=== PATIENT | female | born 1995 | race African-American/Black ===

== ENCOUNTER 2025-10-19 20:37 | Emergency (ER) | payer OTHER, SELFPAY ==
--- OUTSIDE RECORDS SUMMARY | 2025-10-19 20:52 | XMS_ITS | Encounter Summary ---
Author Organization [facility] Address [address] [place] [address] Phone Care Team Providers Care Cell Repairer Name Role Phone Anmol Merrill MD Primary Care Provider Reason for Visit * Reason Onset Date Comments Ear infection 12/31/2019 Encounter Details Date Type Department Care Team (Late st Contact Info) Description 12/31/[address] [facility] Primary Care at [facility] [address] [facility] [place] [address] Anmol Merrill MD [address] [place] [phone] Ear infection Social History Tobacco Use Types Packs/Day Years Used Date Smoking Tobacco: Never Smokeless Tobacco: Never Alcohol Use Standard Drinks/Week Comments Yes 0 (1 standard drink = 0.6 oz pur e alcohol) every once in while Comments No Sex and Gender Information Value Date Recorded Sex Assigned at Not on file Legal Sex Female 9:56 AM PST Gender Identity Female 07/21/2023 8:40 AM PDT Sexual Orientation Straight 05/17/2019 1: 08 PM PDT documented as of this encounter Miscellaneous Notes * Telephone Encounter - Marie Mcelroy RN - 12/31/2019 7:47 PM PDT Pt calling to report presumed ear infection. Report that she feels like left ear is underwater. Denies fever. Denies pain but feels some discomfort. Hasn't noticed any drainage but while cleaning ear piercing did notice some dried yellow drainage around piercing. Has been on amoxicillin BID since 1 yrs old prophylactically. Recommended that pt continue symptom management at home. Can try ear wax removal OTC. May be from fluid build up in ears after flu, advised this may take time to resolve. Reviewed reasons to call back including developing fever, drainage or pain from ear, or overall worsening condition. Pt verbalizes understanding and agrees with plan. * Telephone Encounter - Leti Kyle - 12/31/2019 7:18 PM PDT Symptom Description of symptom: underwater feeling, deep itch, pt thinks its draining at night When did symptom start? 1 week, after recovering from flu Missile Technician action taken: Caller request return call from nurse to discuss symptoms Caller approved clinic to leave a detailed voice message? yes documented in this encounter Plan of Treatment Not on file documented as of this encounter Visit Diagnoses Not on filedocumented in this encounter Care Teams Cell Repairer Relationship Specialty Start Date End Date Anmol Merrill MD [address] [place] [address] PCP - General Family Medicine 08/02/14 documented as of this encounter
[2025-10-19 21:02] VITALS: BP 128/71; RESP 18; TEMP 36.6
--- NOTE | 2025-10-20 00:48 | ED.BACK ---
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 No fevers or chills. No painful or frequent urination. Denies recent cough chest pain shortness of breath. Last menstrual period on time normal. Does not believe herself to be . Related Data Previous Rx's ?Medication ?Instructions ?Recorded cefdinir 300 mg capsule 300 mg PO BID 10 days #20 caps 10/20/25 tamsulosin 0.4 mg capsule 0.4 mg PO DAILY #14 caps 10/20/25 Allergies Allergy/AdvReac Type Severity Reaction Status Date / Time No Known Drug Allergies Allergy Verified 10/19/25 20:57 Exam Narrative Exam Narrative: GENERAL: Well-developed patient, in mild distress. HEAD: Atraumatic. Normocephalic. EYES: Pupils equal round and reactive. Extraocular motions intact. No scleral icterus. No injection or drainage. ENT: Nose without bleeding, purulent drainage. Throat without erythema, tonsillar hypertrophy or exudate. Airway patent. NECK: Trachea midline. Non tender CARDIOVASCULAR: Regular rate and rhythm without murmurs, gallops, or rubs. RESPIRATORY: Clear to auscultation. Breath sounds equal bilaterally. No wheezes, rales, or rhonchi. GASTROINTESTINAL: Abdomen soft, non-tender, nondistended. 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 BACK: Nontender without deformity or crepitance. No flank tenderness. NEURO: AOx3. Motor functions grossly nonfocal. SKIN: No rash or erythema of visible areas Initial Vital Signs Initial Vital Signs: Vital Signs Temperature 97.9 F 10/19/25 21:02 Respiratory Rate 18 10/19/25 21:02 Blood Pressure 128/71 10/19/25 21:02 Course Orders Ordered: ED Orders 10/19/25 23:52 Complete Blood Count AUTO DIFF Stat Comprehensive Metabolic Panel Stat HCG Quantitative /Beta subunit Stat Lipase Stat 10/20/25 00:58 CT abdomen pelvis wo con Stat 10/20/25 03:15 Ictotest Urine Stat Urinalysis and Microscopic Stat Discontinued Medications Hydrocodone Bitart/Acetaminophen (Hydrocodone/Acet 5/325 Prepack) 1 bottle MISC DIRECTED ONE Stop: 10/20/25 02:03 Last Admin: 10/20/25 03:54 Dose: 1 bottle Documented By: Sodium Chloride (Normal Saline 0.9%) 1,000 mls @ 1,000 mls/hr IV BOLUS ONE Stop: 10/20/25 03:00 Last Infusion: 10/20/25 03:21 Dose: Infused Documented By: Admin: 10/20/25 02:03 Dose: 1,000 mls/hr Documented By: RENETTA Ketorolac Tromethamine (Ketorolac 30 Mg/Ml Vial) 15 mg IV NOW ONE Stop: 10/20/25 00:58 Last Admin: 10/20/25 01:02 Dose: 15 mg Documented By: RENETTA Ondansetron HCl (Ondansetron 4 Mg Odt Prepack) 1 bottle MISC DIRECTED ONE Stop: 10/20/25 02:03 Last Admin: 10/20/25 03:54 Dose: 1 bottle Documented By: Tamsulosin HCl (Tamsulosin 0.4 Mg Capsule) 0.4 mg PO NOW ONE Stop: 10/20/25 02:03 Last Admin: 10/20/25 03:55 Dose: 0.4 mg Documented By: Vital Signs Vital signs: Vital Signs - 8 hr 10/19/25 21:02 Temperature 97.9 F Respiratory Rate 18 Blood Pressure 128/71 MDM - Back Pain/Injury Lab Data Attestation: I reviewed the patient's lab results. Lab results narrative: White blood cell count 17277, hemoglobin 13.6, platelets adequate. Glucose 119. Normal renal function, serum CO2, electrolytes. Liver functions normal. Serum hCG negative. Urinalysis not convincing for infection. 10/20/25 00:49 10/20/25 00:49 Labs: Lab Results 10/20/25 10/20/25 Range/Units 00:49 03:15 WBC 14.4 H (4.5-11.0) X10^3/uL RBC 4.53 (4.0-5.2) X10^6/uL Hgb 13.6 (12.0-16.0) g/dL Hct 40.1 (36-46) % MCV 88.5 (80-100) fL MCH 30.0 (26-34) PG MCHC 33.9 (30-36) % RDW 14.5 (11.6-14.8) % Plt Count 300 (150-400) X10^3/uL Neut % (Auto) 84.1 H (50-75) % Lymph % (Auto) 9.2 L (25-40) % [place] % (Auto) 6.4 (3-14) % Eos % (Auto) 0.0 L (2-4) % Baso % (Auto) 0.3 (0-2) % Neut # (Auto) 64816 H (3791-4203) /uL Lymph # (Auto) 1300 (4810-3172) /uL [place] # (Auto) 900 (0-900) /uL Eos # (Auto) 0 (0-450) /uL Baso # (Auto) 0 (0-100) /uL Sodium 140 (137-145) mmol/L Potassium 3.7 (3.4-5.1) mmol/L Chloride 105 (98-107) mmol/L Carbon Dioxide 25 (22-32) mmol/L BUN 14 (7-17) mg/dL Creatinine 0.70 (0.52-1.04) mg/dL Estimated GFR > 60 (>60) mL/min BUN/Creatinine Ratio 20.0 (6-22) Glucose 119 H (70-99) mg/dL Calcium 9.9 (8.4-10.2) mg/dL Total Bilirubin 0.7 (0.2-1.3) mg/dL AST 32 (14-36) IU/L ALT 22 (<35) IU/L Alkaline Phosphatase 95 (38-126) U/L Total Protein 8.8 H (6.3-8.2) g/dL Albumin 4.9 (3.5-5.0) g/dL Globulin 3.9 (1.7-4.1) g/dL Albumin/Globulin Ratio 1.3 (1.0-2.8) Lipase 48 (23-300) U/L HCG, Quant < 2.39 mIU/mL Urine Color Yellow Urine Appearance Cloudy Urine pH 7.5 (4.5-8.0) Ur Specific [place] 1.015 (1.000-1.035) Urine Protein 1+ H (Negative) Urine Glucose (UA) Negative (Negative) g/dL Urine Ketones 2+ H (NEGATIVE) Urine Occult Blood 3+ H (Negative) Urine Nitrate Negative (Negative) Urine Bilirubin 1+ H (NEGATIVE) Ur Bilirubin Confirm Negative (Negative) Urine Urobilinogen 1.0 (0.2) E.U./dL Ur Leukocyte Esterase Trace H (NEGATIVE) Urine RBC 30-100/hpf H (0-5/HPF) Urine WBC 0-1/hpf (0-5/HPF) Ur Squamous Epith Cells 5-10 /hpf H (0-5/HPF) Amorphous Sediment 1+ Urine Bacteria Few (2-10) H (None) Urine Mucus 1+ H (Negative) Ur Culture Indicated? Cult not indicated Vol Urine Centrifuged 10ml (spun) Urine Dip Bedside Urine Glucose Negative Bedside Urine Bilirubin - Negative Bedside Urine Ketone ++ 40 Urine Specific [place] 1.010 Bedside Urine Occult Blood +++ Bedside Urine pH 7.5 Bedside Urine Protein + 30 Bedside Urine Urobilinogen - Negative Bedside Urine Nitrite - Negative Bedside Urine Leukocytes +/- [address] scan - abdomen/pelvis: Radiologist's Impression: [place] [address] CT Scan Report Signed Patient: Renae Bermudez MR#: [id number] : 1995 Acct:[id number] Age/Sex: 30 / F Date of Service: 10/20/25 Loc: ED Accession Number: [id number] Procedure: CT abdomen pelvis wo con Ordering Provider: Tye Ryder MD PROCEDURE: CT ABDOMEN PELVIS WO CON INDICATIONS: R flank pain, hx stones TECHNIQUE: Axial sections were acquired from the lung bases to the pubic symphysis. Coronal and sagittal reformats were performed. For radiation dose reduction, the following was used: automated exposure control, adjustment of mA and/or kV according to patient size. COMPARISON: None. FINDINGS: Image quality: Diagnostic. Lower Chest: No significant findings. URINARY: Right Kidney: There is mild-moderate right hydronephrosis. No significant perinephric stranding. Right Ureter: There is a 4 mm obstructing stone in the proximal right ureter. Left Kidney: No stones or hydronephrosis. Left Ureter: No hydroureter. Bladder: Normal wall thickness. No stones. ABDOMEN: Liver: No contour-deforming solid mass. Gallbladder: No radiopaque gallstones or wall thickening. Biliary ducts: No biliary dilation. Pancreas: No ductal dilation. Spleen: Size is within normal limits. Adrenal Glands: No adrenal nodules. Stomach and Bowel: Normal colonic caliber, without significant wall thickening. Normal appendix. No evidence for small bowel obstruction or associated inflammatory changes. Peritoneum: No abnormal intraperitoneal fluid. No free air. Ventral Wall: There is a fat-containing umbilical hernia without acute inflammation. Abdominal Nodes: No enlarged retroperitoneal or mesenteric lymph nodes. Vessels: Aorta and inferior vena cava are normal in size. PELVIS: Pelvic Organs: Unremarkable. Pelvic Nodes: Unremarkable. Miscellaneous: No inguinal hernias are seen. Bones: Unremarkable. Visualized osseous structures appear intact without acute fracture or focal destructive lesion. No acute compression fractures of the imaged spine. IMPRESSION: An obstructing 4 mm proximal right ureteral stone with associated mild-moderate right hydronephrosis. Normal appendix. Dictated by: Magnus Hanna M.D. on 10/20/2025 at 1:16 Approved by: Magnus Hanna M.D. on 10/20/2025 at 1:20 MDM Narrative Medical decision making narrative: 30-year-old female with history of remote pneumococcal childhood infection status post proximal amputations all extremities, history of kidney stones, with nontraumatic right flank pain. Afebrile, sirs screen negative. Labs pending. Lab data: White blood cell count 46196, hemoglobin 13.6, platelets adequate. Glucose 119. Normal renal function, serum CO2, electrolytes. Liver functions normal. Serum hCG negative. Urinalysis not convincing for infection. CT abdomen and pelvis, shows 4 mm diameter proximal right ureteral stone with right hydronephrosis. See radiology report. Urinalysis not convincing for infection. We discussed tamsulosin she would like to try, 1st dose given, prescription sent to her requested pharmacy. Home pack hydrocodone/acetaminophen. Home pack ODT ondansetron. Given photo copy of CT report. She will follow up in home [facility]. Printed copy of cefdinir antibiotic also provided, if she should develop unexplained fever, with advised to seek emergent evaluation nearest emergency department. Follow up with Urology in home [facility] advised. Home with family. Discharge Plan Departure Patient Disposition: Home Clinical Impression: Acute right flank pain, Calculus of proximal right ureter Instructions: DI for Kidney Stones Activity Restrictions/Additional Instructions: Nontraumatic right flank pain, history of kidney stones. No fevers or chills. Afebrile on triage. CT scanning shows proximal 4 mm stone in the right ureter. You would likely follow up in your home [facility] area. Consider tamsulosin to help expel the stone more efficiently, 1st dose given, prescription printed to fill if desired to help expel stone. Home pack of antinausea medication ondansetron. Home pack of pain control medication acetaminophen/hydrocodone. Recheck advised tomorrow in the next day with your regular doctor in [place]. Contact information given for local urologist Dr. Kaufman if he need to make close follow up alternate plans. Urinalysis not convincing for infection. You had been taking oral amoxicillin prophylaxis, history of reported asplenia, given prescription for cefdinir antibiotic to take if you have unexplained fevers, if you should to be developing an obstructive kidney infection, though we would advise that you go to the nearest emergency department for further evaluation if that should occur. Cefdinir prescription course of antibiotic also printed, to use if unexplained fevers as above. Prescriptions: New tamsulosin 0.4 mg capsule 0.4 mg PO DAILY Qty: 14 0RF cefdinir 300 mg capsule 300 mg PO BID 10 Days Qty: 20 0RF Referrals: Efrain Kaufman DO [Physician, Urology] Stand Alone Forms: Patient Portal/API
--- NOTE | 2025-10-20 00:58 | DI.CT.S_ITS ---
PROCEDURE: CT ABDOMEN PELVIS WO CON INDICATIONS: R flank pain, hx stones TECHNIQUE: Axial sections were acquired from the lung bases to the pubic symphysis. Coronal and sagittal reformats were performed. For radiation dose reduction, the following was used: automated exposure control, adjustment of mA and/or kV according to patient size. COMPARISON: None. FINDINGS: Image quality: Diagnostic. Lower Chest: No significant findings. URINARY: Right Kidney: There is mild-moderate right hydronephrosis. No significant perinephric stranding. Right Ureter: There is a 4 mm obstructing stone in the proximal right ureter. Left Kidney: No stones or hydronephrosis. Left Ureter: No hydroureter. Bladder: Normal wall thickness. No stones. ABDOMEN: Liver: No contour-deforming solid mass. Gallbladder: No radiopaque gallstones or wall thickening. Biliary ducts: No biliary dilation. Pancreas: No ductal dilation. Spleen: Size is within normal limits. Adrenal Glands: No adrenal nodules. Stomach and Bowel: Normal colonic caliber, without significant wall thickening. Normal appendix. No evidence for small bowel obstruction or associated inflammatory changes. Peritoneum: No abnormal intraperitoneal fluid. No free air. Ventral Wall: There is a fat-containing umbilical hernia without acute inflammation. Abdominal Nodes: No enlarged retroperitoneal or mesenteric lymph nodes. Vessels: Aorta and inferior vena cava are normal in size. PELVIS: Pelvic Organs: Unremarkable. Pelvic Nodes: Unremarkable. Miscellaneous: No inguinal hernias are seen. Bones: Unremarkable. Visualized osseous structures appear intact without acute fracture or focal destructive lesion. No acute compression fractures of the imaged spine. IMPRESSION: An obstructing 4 mm proximal right ureteral stone with associated mild-moderate right hydronephrosis. Normal appendix. Dictated by: Magnus Hanna M.D. on 10/20/2025 at 1:16 Approved by: Magnus Hanna M.D. on 10/20/2025 at 1:20
[2025-10-20] MEDS: KETOROLAC 30 MG/ML VIAL 15 MG IV (01:02)
[2025-10-20 01:04] LABS: Add Manual Diff / Slide Review NO; Hematocrit 40.1 % (36-46); Hemoglobin 13.6 g/dL (12.0-16.0); Lymphocytes Absolute Auto 1300 /uL (1100-4500); Mean Corpuscular HGB Conc 33.9 % (30-36); Mean Corpuscular Hemoglobin 30.0 PG (26-34); Mean Corpuscular Volume 88.5 fL (80-100); Platelet Count 300 X10^3/uL (150-400)
[2025-10-20 01:18] LABS: Alanine Aminotransferase 22 IU/L (<35); Albumin 4.9 g/dL (3.5-5.0); Albumin Globulin Ratio 1.3 (1.0-2.8); Alkaline Phosphatase 95 U/L (38-126); Blood Urea Nitrogen 14 mg/dL (7-17); Calcium 9.9 mg/dL (8.4-10.2); Carbon Dioxide 25 mmol/L (22-32); Chloride 105 mmol/L (98-107); Estimated Glomerular Filt Rate > 60 mL/min (>60); Globulin 3.9 g/dL (1.7-4.1); Glucose 119 mg/dL (70-99); HEMOLYSIS < 15 (0-50); Lipase 48 U/L (23-300); Potassium 3.7 mmol/L (3.4-5.1); Sodium 140 mmol/L (137-145); Total Protein 8.8 g/dL (6.3-8.2)
[2025-10-20 01:56] LABS: HCG Quantitative /Beta subunit < 2.39 mIU/mL
[2025-10-20] MEDS: SODIUM CHLORIDE 0.9% 1,000 ML 1000 ML IV (02:03)
[2025-10-20 03:20] LABS: Appearance Urine UA CLOUDY; Bilirubin Urine UA 1+ (NEGATIVE); Color Urine UA YELLOW; Glucose Urine UA NEGATIVE (Negative); Ketones Urine UA 2+ (NEGATIVE); Leukocyte Esterase Urine UA TRACE (NEGATIVE); Nitrite Urine UA NEGATIVE (Negative); Occult Blood Urine UA 3+ (Negative); Protein Urine UA 1+ (Negative); Specific Gravity Urine UA 1.015 (1.000-1.035); Urobilinogen Urine UA 1.0 E.U./dL (0.2)
[2025-10-20 03:27] LABS: pH Urine UA 7.5 (4.5-8.0)
[2025-10-20 03:38] LABS: Ictotest Urine Negative (Negative)
[2025-10-20 03:39] LABS: Culture Indicated Urine Cult Not Indicated
[2025-10-20] MEDS: ONDANSETRON 4 MG ODT PREPACK 1 BOTTLE MISC (03:54)
[2025-10-20] MEDS: TAMSULOSIN 0.4 MG CAPSULE PO (03:55)
== END 2025-10-20 04:06 | disposition home or self-care (01) ==
PROVIDERS: Emergency Provider Emergency Medicine
DX: N13.2 Hydronephrosis with renal and ureteral calculous obstruction (principal); Z86.19 Personal history of other infectious and parasitic diseases; Z89.222 Acquired absence of left upper limb above elbow; Z89.221 Acquired absence of right upper limb above elbow; Z89.612 Acquired absence of left leg above knee; Z89.611 Acquired absence of right leg above knee
CPT/HCPCS: 36415; 74176; 80053; 81001; 81003; 83690; 84702; 85025; 96361; 96374; 99284; J1885; J7030